=== PATIENT | female | born 1980 | race Caucasian/White ===

== ENCOUNTER 2019-05-31 05:27 | Outpatient (CLI) | payer BC ==
[~2019-05-31] VITALS: Ht 154.9 cm; Wt 108.2 kg
--- NOTE | 2019-05-31 05:38 | NUR ---
0538- Patient being seen at this time with c/o contractions and possible leakage of fluid. 0545- EFM applied, VSS. 0553- Amniotest negative. SVE 0//-2 with no visual fluid.
[2019-05-31 05:39] VITALS: BP 135/80; PULSE 73; TEMP 98.3
[2019-05-31 06:00] VITALS: BP 135/80; PULSE 73; TEMP 98.3
--- NOTE | 2019-05-31 06:50 | NUR ---
SVE-0/25/-3 and patient does not tolerate well. 0710: Dishcarge orders from Dr. Holbrook received. 0713: Patient off monitor and dishcarge instructions gone over and signs paper. Questions answered. 0715: Ambulatory off unit with spouse.
--- NOTE | 2019-05-31 06:50 | NUR ---
SVE-0/25/-3 and patient does not tolerate check well. Plan of care discussed. Dr. Woodward called and discharge order given. 0655: Patient off monitor/ 0705: Discharge instructions gone over and patient signs paper. Questions answered. 0710: Ambulatory off unit with spouse.
[2019-05-31 07:13] VITALS: BP 130/74; PULSE 65
== END 2019-05-31 07:15 | disposition home or self-care (01) ==
LOC: LDRO 05:27
DX: O62.9 Abnormality of forces of labor, unspecified (principal); Z3A.38 38 weeks gestation of pregnancy

== ENCOUNTER 2019-06-02 12:03 | Inpatient (IN) | payer BC ==
[~2019-06-02] VITALS: Ht 155 cm; Wt 107.7 kg
[2019-06-02] VITALS (34 sets, daily range): BP systolic 107–157; BP diastolic 15–91; PULSE 57–84; TEMP 97.4–98.7
--- NOTE | 2019-06-02 13:20 | NUR ---
Patient ambulatory to LR4 with spouse and mother, changed into gown, FHR/TOCO monitor placed and explained. Patient sent over from the office per Dr. Holbrook due IUGR/blood pressure/boarder line oligo. Patient denies any regular contracitons/leaking fluid/vaginal bleeding. Plan of care discussed. SVE attempted and patient does not tolerate well/unable to assess SVE 1355: IV started per Marcy HASSAN in left upper arm, blood drawn and to lab, LR infusing. 1356: FHR baseline 135bpm. Patient begins to contract. FHR decreases to 60-90bpm for approx. 3 minutes, during this time patient turned left lateral and Oxygen applied to patient via mask at 10ml/hr. FHR returns to baseline of 130bpm. Assessment completed/consents gone over and signed/ discussed. 1412: Dr. Holbrook called and updated on patient and FHR strip and late deceleration. 1425: Patient off monitor to void. 1515:Patient off monitor to void.
[2019-06-02 14:38] LABS: COLLECTION METHOD CLEAN CATCH
[2019-06-02] MEDS ORDERED: MAGNESIUM ELEME30 MG PO (14:39)
[2019-06-02] MEDS ORDERED: FERROUSGLUC256MG (14:39)
[2019-06-02] MEDS ORDERED: NORMODYNE100 MG PO (14:39)
[2019-06-02] MEDS ORDERED: PRENATAL TABLET PO (14:39)
[2019-06-02] MEDS ORDERED: ASPIRIN 81M81 MG/TA2 PO (14:40)
[2019-06-02 14:41] LABS: BASO % 0.1 % (0.0-2.0); EOS % 0.4 % (0-4.0); GRAN # 6.6 (1.4-6.5); GRAN % 76.9 % (42.2-75.2); HEMOGLOBIN 11.3 g/dl (12.5-16.0); LYMPH # 1.4 (1.2-3.4); LYMPH % 16.2 % (20.0-51.0); MEAN CELL VOLUME 88 fl (80.0-100.0); MEAN CORPUSCULAR HEMOGLOBIN 29 pg (27.0-31.0); MEAN CORPUSCULAR HGB CONC 33 g/dl (33.0-37.0); MONO # 0.5 (0.1-0.6); MONO % 5.9 % (1.7-9.3); PLATELET COUNT 241 K/mm3 (130-400); RED BLOOD COUNT 3.89 M/mm3 (4.10-5.30); REDCELL DISTRIBUTION WIDTH-CV 15.1 % (11.5-14.5)
[2019-06-02 14:42] LABS: HEMATOCRIT 34.1 % (37.0-47.0)
[2019-06-02 14:45] LABS: PH 7 (5-8); SQUAMOUS EPITHELIAL 0-2 /hpf; URINE APPEARANCE Clear; URINE BACTERIA Rare /hpf; URINE BILIRUBIN Negative (NEGATIVE); URINE BLOOD 2+ (NEGATIVE); URINE COLOR Straw; URINE GLUCOSE Negative (NEGATIVE); URINE KETONE Negative (NEGATIVE); URINE LEUKOCYTE ESTERASE Trace (NEGATIVE); URINE NITRATE Negative (NEGATIVE); URINE PROTEIN(semi-quant) Negative (NEGATIVE); URINE RBC 0-2 /hpf; URINE UROBILINOGEN Negative (NEGATIVE)
[2019-06-02 15:00] LABS: ALBUMIN 3.6 gm/dL (3.5-5.0); BILIRUBIN,TOTAL 0.2 mg/dL (0.0-1.0); CALCIUM 9.6 mg/dL (8.4-10.2); CREATININE, serum 0.6 (0.52-1.25)
--- NOTE | 2019-06-02 17:46 | NUR ---
1612 - Macie Medina CRNA at bedside for epidural. Pt repositioned to sitting at side of bed. Difficulty tracing FHT while pt in sitting position and uncomfortable with contractions. 1626 - Single shot given. Test dose given at 1628. 1640 - Pt repositioned to supine position with head of bed elevated. Difficulty finding FHT. Leonidas Ellington RN in to assist. FHT tracing again at 1645. 1650 - Dr. Holbrook in to see pt. SVE per provider /-1. FSE placed by Dr. Holbrook at 1652. IUPC placed by Dr. Holbrook at 1655. Pt repositioned for comfort. 1710 - Baxter catheter placed, draining clear yellow urine. 1735 - Ampicillin started per physician orders. See physician notes.
--- NOTE | 2019-06-02 18:21 | NUR ---
1820- Late deceleration down to 100 bpm. 1822 - Pt repositioned to left lateral. 1823 - No change in FHR, pt repositioned back to right lateral. 1824 - SVE 5-6/100/-1, acceleration with scalp stimulation. 1826 - FHR baseline back to [address] Holbrook updated, see physician notification.
--- NOTE | 2019-06-02 19:11 | NUR ---
191 - Late deceleration down to 100 bpm, pt repositioned to left lateral. 1913 - FHR down to 65 bpm. Fluid bolus started. Pt repositioned to right lateral. 1915 - SVE 5-6/100/-1. 1917 - FHR remains 90 bpm. Pt repositioned to high fowlers. 1918 - FHR down to 45 bpm. Pitocin off. O2 on. Pt repositioned to hands and knees. Dr. Holbrook notified, see physician notification. 1922 - FHR back to baseline of 120 bpm. Pt remains in hands and knees, updated on plan of care.
--- NOTE | 2019-06-02 19:30 | NUR ---
Dr. Holbrook at bedside. O2 off. SVE 5-6/100/-1. Dr. Holbrook discussing plan of care with patient and spouse and need to go to section urgently for non reassuring FHTs. Pt and spouse agreeable at this time. Anesthesia at bedside. All questions answered.
--- NOTE | 2019-06-02 19:40 | NUR ---
Pt prepped for section. Incision site clipped by SONYA Ferrari. Hibiclens by this RN. 1939 - Monitors removed for transfer to OR. 1944 - In OR. Do not need to obtain FHTs per Dr. Holrbook.
[2019-06-03 00:30] VITALS: BP 114/49; PULSE 64
[2019-06-03 04:15] VITALS: BP 117/50; PULSE 72; TEMP 98
[2019-06-03 07:40] LABS: BASO % 0.2 % (0.0-2.0); EOS % 0.1 % (0-4.0); GRAN # 9.3 (1.4-6.5); GRAN % 86.6 % (42.2-75.2); LYMPH # 0.9 (1.2-3.4); LYMPH % 8.2 % (20.0-51.0); MEAN CELL VOLUME 91 fl (80.0-100.0); MEAN CORPUSCULAR HGB CONC 32 g/dl (33.0-37.0); MEAN PLATELET VOLUME 9.6 fl (7.4-10.4); MONO # 0.5 (0.1-0.6); MONO % 4.5 % (1.7-9.3); PLATELET COUNT 183 K/mm3 (130-400); RED BLOOD COUNT 3.39 M/mm3 (4.10-5.30); REDCELL DISTRIBUTION WIDTH-CV 15.2 % (11.5-14.5)
[2019-06-03 07:54] LABS: HEMATOCRIT 30.8 % (37.0-47.0); HEMOGLOBIN 9.8 g/dl (12.5-16.0); MEAN CORPUSCULAR HEMOGLOBIN 29 pg (27.0-31.0)
[2019-06-03 08:15] VITALS: BP 114/50; PULSE 82; TEMP 97.9
[2019-06-03] MEDS ORDERED: IBU600 MG PO (09:05)
[2019-06-03] MEDS ORDERED: PERCOCET 325 MG1 TA2 PO (09:06)
--- NOTE | 2019-06-03 10:02 | NUR ---
Initial visit; Parents thanked Restaurant Mgr for offering congratulations and God's blessings for the of their daughter. Restaurant Mgr thanked family for choosing [facility].
[2019-06-03 12:45] VITALS: BP 118/63; PULSE 86; TEMP 97.5
[2019-06-03 16:50] VITALS: BP 158/95; PULSE 87; TEMP 98.5
[2019-06-03 20:00] VITALS: BP 127/62; PULSE 76; TEMP 98.2
--- NOTE | 2019-06-03 20:00 | NUR ---
VERY TEARFUL HAVING TROUBLE BREATFEEDING. SUPPORT GIVEN.ABD BANDAGE AND IV REMVED. SHOWERED WALKED IN DA SILVA WITH AND BABY- FEELING BETTER.
[2019-06-04 08:00] VITALS: BP 125/64; PULSE 80; TEMP 98.9
[2019-06-04 16:00] VITALS: BP 126/73; PULSE 73; TEMP 98
[2019-06-04 19:30] VITALS: BP 143/89; PULSE 93; TEMP 98.4
[2019-06-05 02:05] VITALS: BP 135/69; PULSE 86
[2019-06-05 09:50] VITALS: BP 133/80; PULSE 97; TEMP 97
== END 2019-06-05 13:15 | disposition home or self-care (01) | DRG 787 ==
LOC: OB 12:03 → LDR 13:25 → OB 21:30
PROVIDERS: ADMIT Obstetrics & Gynecology
PROC: 10D00Z1 Extraction of Products of Conception, Low, Open Approach (ICD-10-PCS; principal; 2019-06-02)
PROC: 3E033VJ Introduction of Other Hormone into Peripheral Vein, Percutaneous Approach (ICD-10-PCS; 2019-06-02)
DX: O36.5930 Maternal care for other known or suspected poor fetal growth, third trimester, not applicable or unspecified (principal); O41.03X0 Oligohydramnios, third trimester, not applicable or unspecified; O10.92 Unspecified pre-existing hypertension complicating childbirth; Z3A.38 38 weeks gestation of pregnancy; Z37.0 Single live birth; O76 Abnormality in fetal heart rate and rhythm complicating labor and delivery; O99.214 Obesity complicating childbirth; O99.344 Other mental disorders complicating childbirth; F41.8 Other specified anxiety disorders; O42.92 Full-term premature rupture of membranes, unspecified as to length of time between rupture and onset of labor
CPT/HCPCS: J0290; J0690; J1580; J1885; J2270; J2370; J2400; J2405; J2590; J2795; J7120

== ENCOUNTER → 2019-06-16 | Outpatient (CLI) | payer BC ==
[~2019-06-16] MED LIST: ASPIRIN 81M81 MG/TA2 PO; FERROUSGLUC256MG; IBU600 MG PO; MAGNESIUM ELEME30 MG PO; NORMODYNE100 MG PO; PERCOCET 325 MG1 TA2 PO; PRENATAL TABLET PO
--- NOTE | 2019-06-16 13:12 | NUR ---
Teressa Shahrs into walk in lacatation clinic with 2 week old Nohemy for weight check and latch assistance. Nohemy was born on [birth year] with a weight of 5#15. Teressa states Nohemy is attempting to BF approx 3 times per day, but she ultimately gives her a bottle because she is unable to obtain a good latch. Teressa states Nohemy is eating approx 8 30-60 ml bottles of EBM or formula a day. She also states Nohemy is having 2 yellow stools per day and 4 wet diapers. Teressa is pumping approx 5 times per day, getting a total of 10-25 mls per pumping session. While in clinic, Teressa latched Nohemy to the left breast usign a nipple shield for approx 10 min with a gain of 0.2 oz. She then removed shield and LC assisted to latch infant to breast in which she took another 0.5 oz. Teressa then latch Nohemy to right breast with shield and she took another 10 ml for a total of 1.1 oz. Teressa states Nohemy is very fussy at the breast which is why she ultimately bottle feeds. It appears her milk supply is low which may also acount for the fussiness at the breast. POC: Begin 3 step feeding method. With each feeding, at least 8 times per day, attempt to BF 10-15 per breast. Supplement with 2-2.5 oz EBM or formula, then pump for 10-15 min with double electric pump. Return to clinic next week for weight check and evaluation. Questions encouraged and answered. Understanding verbalized.
== END ==
LOC: LAC 11:34
DX: Z39.1 Encounter for care and examination of lactating mother (principal); Z71.89 Other specified counseling

== ENCOUNTER → 2019-06-23 | Outpatient (CLI) | payer BC ==
--- NOTE | 2019-06-23 13:55 | NUR ---
Pt, Teressa Shahrs, presents to walk-in clinic with 1 month old baby girl Nohemy Estrada, and pt's mother. Nohemy was born on [birth year] by c/section and weighed 5#15oz (2693 gms). She was seen at clinic one week ago for latch problems, low milk supply, and not gaining weight. Last week, at 3 weeks of age, Nohemy weighed 6#0oz (2722 gms). Pt was advised to start 3 step feeding plan with breast/bottle/pump. She has followed this plan and is now bottle feeding Nohemy 8 times daily, offering the breast a few times each day. She pumps 6x daily and collects an average of 20ml per pumping. Nohemy is drinking 60-90ml per feeding of EBM and formula. Today Nohemy weighs 6#8.3oz (2956 gms). She is placed to the breast and appears to latch well, but does not stay on task, presumably from the low milk volume. LC places SNS while Nohemy is on the second breast and she nurses more actively once tubing placement is secured. Total intake at this feeding was 66ml of which 45ml was formula, and 21ml from the breast. LC discusses causes for low milk supply, discussed possible thyroid and PCOS as possibilities based on pt's medical hx. Encouraged to talk to Dr. Holbrook re: causes for low milk supply. Also discussed supplements that may help with milk supply and considering a commercial SNS kit if she feels committed to this feeding method. POC: continue with 3 step feeding plan, consider talking with Dr. Holbrook and use of SNS. F/U: As scheduled with Dr. Cobb and walk-in clinic as desired. Questions invited and answered.
== END ==
LOC: LAC 12:24
DX: Z39.1 Encounter for care and examination of lactating mother (principal)

== ENCOUNTER → 2024-02-04 | Outpatient (CLI) | payer OTHER | LOC: MC.RAD 08:00 | DX: R92.8 Other abnormal and inconclusive findings on diagnostic imaging of breast (principal) ==